=== PATIENT | female | born 1960 | race Hispanic/Latino ===

== ENCOUNTER → 2017-11-30 | Outpatient (CLI) | payer BC ==
[~2017-11-30] MED LIST: CELE200 PO; CYAN1TAB54 PO; DOXY-252 PO; DOXY100C2 PO; ESTR1TAB32 PO; OMEP40CA37 PO; TYL3 PO; VITA1CAP PO; ZOLP10TA6 PO; [UNRECOGNIZED DRUG - CODE]
== END | disposition home or self-care (01) ==
LOC: RAH 13:58
PROVIDERS: ATTEND Internal Medicine
DX: R10.9 Unspecified abdominal pain (principal); Z90.49 Acquired absence of other specified parts of digestive tract
CPT/HCPCS: 74176

== ENCOUNTER 2022-07-10 10:11 | Emergency (ER) | payer BC ==
[~2022-07-10] VITALS: Ht 160 cm; Wt 77.1 kg
[~2022-07-10 10:11] MED LIST changes: -DOXY100C2 PO; +DOXY100C5 PO; +OMEP40CA21 PO; -OMEP40CA37 PO
[2022-07-10 10:31] LABS: MEAN CORPUSCULAR HEMOGLOBIN 29.8 pg (27.0-33.0); MEAN CORPUSCULAR HGB CONC 32.8 g/dL (32.0-36.0); MEAN CORPUSCULAR VOLUME 90.7 fL (79-99); PLATELET COUNT (AUTO) 253 K/uL (130-400); WHITE BLOOD COUNT (AUTO) 10.4 K/uL (4.8-10.8)
[2022-07-10 10:48] LABS: APPEARANCE,URINE CLOUDY (CLEAR); BILIRUBIN,URINE NEGATIVE (NEGATIVE); COLOR,URINE YELLOW (YELLOW); GLUCOSE, URINE (UA) NEGATIVE (NEGATIVE); KETONES,URINE 5 mg/dL (NEGATIVE); LEUKOCYTE ESTERASE ,URINE TRACE (NEGATIVE); NITRATE,URINE NEGATIVE (NEGATIVE); OCCULT BLOOD,URINE SMALL (NEGATIVE); PROTEIN,URINE 100 mg/dL (NEGATIVE)
[2022-07-10 10:48] LABS: CREATININE 1.1 mg/dL (0.5-1.5); TOTAL PROTEIN, SERUM 8.1 g/dL (6.0-8.3)
[2022-07-10 10:50] LABS: POTASSIUM 2.9 mmol/L (3.5-5.1)
[2022-07-10] MEDS ORDERED: ACETAMINOPHEN 500 MG TABLET PO ONE (11:00)
[2022-07-10 11:07] LABS: RBC,URINE 0-1 /HPF (0-1)
[2022-07-10 11:08] LABS: BACTERIA,URINE Many /HPF (None Seen); HYALINE CASTS, URINE 0-1 /LPF (0-1 /LPF); MUCUS,URINE Few LPF (None Seen); SQUAMOUS EPITHELIAL CELL,UR Moderate /HPF (0-2)
[2022-07-10] MEDS ORDERED: LACTATED RINGERS 1000ML IV SCH (11:30)
[2022-07-10] MEDS ORDERED: POTASSIUM CHLORIDE 20MEQ/10ML 10 MEQ in 0.9%NACL 50ML 50 ML IV SCH (11:30)
[2022-07-10] MEDS ORDERED: MORPHINE 2 MG SYG IVP ONE (11:30)
[2022-07-10] MEDS ORDERED: POTASSIUM CHLORIDE 10MEQ/100ML 100 ML IV SCH (11:30)
[2022-07-10] MEDS ORDERED: ONDANSETRON 4MG INJ IVP ONE (11:30)
[2022-07-10] MEDS ORDERED: KETOROLAC 15MG/ML VIAL (15MG/ML) IV ONE ×2 (11:30→15:30)
[2022-07-10] MEDS ORDERED: CEFTRIAXONE 1G VIAL IVP ONE (12:30)
[2022-07-10] MEDS ORDERED: DOXYCYCLINE HYCLATE 100 MG TABLET PO SCH (12:30)
[2022-07-10 12:59] LABS: EOSINOPHILS % (MANUAL) 1 % (1-6); LYMPHOCYTES % (MANUAL) 11 % (22-44); MAN.DIFF COMMENT-IMPRESSION MANUAL DIFFERENTIAL; MONOCYTES % (MANUAL) 5 % (2-9); PLATELET MORPHOLOGY COMMENT ADEQUATE; SEGMENTED NEUTROPHILS % 83 % (40-70)
[2022-07-10 13:03] LABS: APPEARANCE,URINE CLEAR (CLEAR); BILIRUBIN,URINE NEGATIVE (NEGATIVE); COLOR,URINE YELLOW (YELLOW); GLUCOSE, URINE (UA) NEGATIVE (NEGATIVE); KETONES,URINE NEGATIVE (NEGATIVE); LEUKOCYTE ESTERASE ,URINE TRACE (NEGATIVE); NITRATE,URINE NEGATIVE (NEGATIVE); OCCULT BLOOD,URINE TRACE-INTACT (NEGATIVE); PH,URINE 6.5 (5.0-8.0); PROTEIN,URINE NEGATIVE (NEGATIVE)
[2022-07-10] MEDS ORDERED: IOHEXOL 350 MG/ML 100ML INFUS..BTL IV ONE (13:09)
[2022-07-10 13:26] LABS: BACTERIA,URINE Few /HPF (None Seen); RBC,URINE 0-1 /HPF (0-1); WBC,URINE 0-1 /HPF (0-1)
[2022-07-10] MEDS ORDERED: CEFD300C3 PO (15:06)
[2022-07-10] MEDS ORDERED: FIORIT PO (15:06)
[2022-07-10 15:09] VITALS: BP 153/87
[2022-07-12] MEDS ORDERED: HYDR-4381 PO (08:00)
[2022-07-13] MEDS ORDERED: AMLO5TAB4 PO (07:13)
== END 2022-07-10 15:27 | disposition home or self-care (01) ==
LOC: EDH 10:11
DX: N39.0 Urinary tract infection, site not specified (principal); R11.2 Nausea with vomiting, unspecified; Z20.822 Contact with and (suspected) exposure to COVID-19; M19.90 Unspecified osteoarthritis, unspecified site; M79.7 Fibromyalgia; Z79.1 Long term (current) use of non-steroidal anti-inflammatories (NSAID); Z79.899 Other long term (current) drug therapy; Z90.710 Acquired absence of both cervix and uterus
CPT/HCPCS: 99285; 70450; 96374; 96375; 71045; 87635; 96361; 83735; 80053; 85025; 87040 ×2; 87077; 87088; 87186; 87880; 87804 ×2; 81001 ×2; 36415; 74177; 96376; 84145; C9803; J7120; J0696; J2405; J1885 ×2; Q9967

== ENCOUNTER 2025-01-10 21:00 | Emergency (ER) | payer BC ==
[~2025-01-10] VITALS: Ht 157.5 cm; Wt 78.5 kg
[~2025-01-10 21:00] MED LIST changes: +AMLO5TAB4 PO; -CYAN1TAB54 PO; -DOXY-252 PO; -DOXY100C5 PO; +HYDR-4381 PO; -TYL3 PO; -VITA1CAP PO; -ZOLP10TA6 PO; -[UNRECOGNIZED DRUG - CODE]
[2025-01-10 21:35] LABS: BASOPHILS # (AUTO) 0.06 K/uL (0.00-0.20); BASOPHILS % (AUTO) 0.7 % (0.0-5.0); EOSINOPHILS # (AUTO) 0.25 K/uL (0.00-0.70); HEMATOCRIT 39.9 % (36-48); IMMATURE GRANULOCYTE ABSOLUTE 0.02 K/uL (0-1); LYMPHOCYTES # (AUTO) 2.3 K/uL (1.0-4.8); MEAN CORPUSCULAR HEMOGLOBIN 29.8 pg (27.0-33.0); MEAN CORPUSCULAR HGB CONC 31.8 g/dL (32.0-36.0); MEAN CORPUSCULAR VOLUME 93.7 fL (79-99); MONOCYTES # (AUTO) 0.5 K/uL (0.1-1.0); MONOCYTES % (AUTO) 6.5 % (3.0-13.0); NEUTROPHILS # (AUTO) 5.1 K/uL (1.8-7.7); NEUTROPHILS % (AUTO) 61.6 % (40.0-77.0); PLATELET COUNT (AUTO) 291 K/uL (130-400); RED BLOOD CELL COUNT(AUTO) 4.26 MIL/uL (4.00-5.50); RED CELL DISTRIBUTION WIDTH 13.3 % (11.0-15.5); WHITE BLOOD COUNT (AUTO) 8.3 K/uL (4.8-10.8)
[2025-01-10 21:45] LABS: CREATININE 0.8 mg/dL (0.5-1.0); POTASSIUM 3.6 mmol/L (3.5-5.1)
--- NOTE | 2025-01-10 21:53 | ERN ---
ED Note History of Present Illness Stated Complaint: CHILLS, NAUSEA, PAIN Chief Complaint: Tooth Ache/Pain Time Seen by MD: 21:08 Time Seen by Midlevel: 21:08 Dictation: 64-year-old female with a history of hypertension and fibromyalgia coming in complaining of chills and nausea and decreased appetite. Patient states she has a right molar tooth infection was prescribe antibiotics today and just took one pill today. However she has a history of sepsis in because she was having chills she has has a come and be evaluated. Allergies: Coded Allergies: No Known Allergies (Unverified Allergy, Unknown, 01/02/15) Home Meds Active Scripts Amlodipine Besylate (Norvasc 5Mg Tab) 5 Mg Tablet, 10 MG PO DAILY for 30 Days, #30 TAB Prov:[employer] 07/13/22 Reported Medications Hydrocodone/Acetaminophen (Hydrocodone-Acetamin 10-300 mg) 1 Each Tablet, 1 EACH PO Q4HPRN, TAB 07/12/22 Estrogen,Cassia/Me-Testosterone (Eemt Ds 1.25-2.5 mg Tablet) 1 Each Tablet, 1 EACH PO DAILY, TAB 01/04/15 Omeprazole (Omeprazole) 40 Mg Capsule.dr, 40 MG PO DAILY, CAP 01/04/15 Celecoxib (Celebrex 200Mg Cap) 200 Mg Cap, 1 MG PO DAILY, CAP 01/04/15 Past Medical History Past Medical History: Fibromyalgia, Hypertension Surgical History: Hysterectomy Surgical History Other: RT KNEE Social History: Negative, Lives with family History: Not Applicable Review of System Dictation NEGATIVE EXCEPT PER HPI Constitutional: Negative for fever,chills, and weight loss Eyes: Negative for injury, pain,redness, and discharge ENT: Mouth pain Cardiovascular: denies chest pain, palpitations, and edema Respiratory: Negative for shortness of breath, cough, and wheezing, Abdomen/GI: Negative for abdominal pain, nausea, vomiting, diarrhea, and co nstipation Back: Negative for injury and pain : Negative for injury, bleeding and discharge MS/Extremity: Negative for injury and deformity Skin: Negative for rash, and discoloration Neuro: Negative for headache, weakness, numbness, tingling, and seizure Psych: Negative for suicide ideation, homicidal ideation, and hallucinations Initial Vital Sign VS Vital Signs Date Time Temp Pulse Resp B/P (MAP) Pulse Ox O2 Delivery O2 Flow Rate FiO2 01/10/25 21:11 98.4 105 20 200/107 96 Room Air 01/10/25 22:04 0 21 Physical Exam Dictation General: awake, alert, NAD Head/Face: Normocephalic, atraumatic Eyes: PERRL, EOMI, vision at baseline ENT: oral cavity clear, TMs clear, no signs of infection Neck: Trachea midline, supple, no nuchal rigidity Cardiovascular: RRR, normal S1/S2, No MRGs, no JVD Respiratory: CTAB, no respiratory distress, No rales or wheezes Abdomen: Soft , no tender Skin: Warm, dry, normal turgor, no rash MS/Extremity: Pulses equal, no cyanosis, neurovascular intact, FROM Neuro: COAx4, GCS 15, strength 5/5, CN 2-12 intact, normal cerebellar exam, normal gait, Psych: Normal behavior, mood, and affect normal Results (Laboratory/Radiology) Laboratory/Radiology Laboratory Tests Test 01/10/25 21:26 01/10/25 22:10 White Blood Count 8.3 K/uL (4.8-10.8) Red Blood Count 4.26 MIL/uL (4.00-5.50) Hemoglobin 12.7 g/dL (12.0-16.0) Hematocrit 39.9 % (36-48) Mean Corpuscular Volume 93.7 fL (79-99) Mean Corpuscular Hemoglobin 29.8 pg (27.0-33.0) Mean Corpuscular Hemoglobin Concent 31.8 g/dL (32.0-36.0) L Red Cell Distribution Width 13.3 % (11.0-15.5) Platelet Count 291 K/uL (130-400) Mean Platelet Volume 8.8 fL (7.5-10.5) Immature Granulocyte % (Auto) 0.2 % (0-1) Neutrophils (%) (Auto) 61.6 % (40.0-77.0) Lymphocytes (%) (Auto) 28.0 % (21.0-51.0) Monocytes (%) (Auto) 6.5 % (3.0-13.0) Eosinophils (%) (Auto) 3.0 % (0.0-8.0) Basophils (%) (Auto) 0.7 % (0.0-5.0) Neutrophils # (Auto) 5.1 K/uL (1.8-7.7) Lymphocytes # (Auto) 2.3 K/uL (1.0-4.8) Monocytes # (Auto) 0.5 K/uL (0.1-1.0) Eosinophils # (Auto) 0.25 K/uL (0.00-0.70) Basophils # (Auto) 0.06 K/uL (0.00-0.20) Absolute Immature Granulocyte (auto 0.02 K/uL (0-1) Nucleated Red Blood Cells 0.0 % (0.0-0.19) Sodium Level 139 mmol/L (136-145) Potassium Level 3.6 mmol/L (3.5-5.1) Chloride Level 101 mmol/L (101-111) Carbon Dioxide Level 32 mmol/L (21-32) Blood Urea Nitrogen 12 mg/dL (7-18) Creatinine 0.8 mg/dL (0.5-1.0) Glomerular Filtration Rate Calc 82 mL/min (>90) Random Glucose 127 mg/dL (70-105) H Lactic Acid Level 1.3 mmol/L (0.8-2.5) Total Calcium 9.4 mg/dL (8.5-10.1) Urine Color COLORLESS (YELLOW) Urine Appearance CLEAR (CLEAR) Urine pH 6.0 (5.0-8.0) Urine Specific [place] 1.010 (1.001-1.031) Urine Protein NEGATIVE mg/dL (NEGATIVE) Urine Glucose (UA) NEGATIVE mg/dL (NEGATIVE) Urine Ketones NEGATIVE mg/dL (NEGATIVE) Urine Occult Blood +- (TRACE) (NEGATIVE) H Urine Nitrate NEGATIVE (NEGATIVE) Urine Bilirubin NEGATIVE mg/dL (NEGATIVE) Urine Urobilinogen 0.2 mg/dL (0.2-1.0) Urine Leukocyte Esterase NEGATIVE Curly/uL Urine RBC 0-1 /HPF (0-1) Urine WBC 2-5 /HPF (0-1) H Urine Squamous Epithelial Cells MOD /HPF (0-2) Urine Bacteria FEW /HPF (None Seen) ED Course ED Course Orders Procedure Category Date Status Time Cbc With Differential LAB 01/10/25 Complete 21:14 Basic Metabolic Panel LAB 01/10/25 Complete 21:14 Lactic Acid LAB 01/10/25 Complete 21:14 Hydralazine 20mg Inj PHA 3/5/25 Complete (Apresoline 20mg In 21:14 Urinalysis Profile LAB 01/10/25 Complete 21:14 Hydrocodone/Apap PHA 01/10/25 Complete 5/325 ([place] 5/325mg) 21:51 Ketorolac PHA 01/10/25 Complete Tromethamine 15mg/Ml 21:51 Hydralazine 20mg Inj PHA 01/10/25 Complete (Apresoline 20mg In 22:30 Amox/Clav 875/125mg PHA 01/10/25 Verified Tab (Augmentin 875-1 23:00 Current Medications Medications (Trade) Dose Ordered Sig/Leah Route PRN Reason Start Time Stop Time Status Last Admin Dose Admin Acetaminophen/ Hydrocodone Bitart (NORco 5/325MG) 1 tab ONCE STAT PO 01/10/25 21:51 01/10/25 21:55 DC 01/10/25 22:36 Hydralazine HCl (APRESOLine 20MG INJ) 10 mg ONCE ONCE IV 01/10/25 22:30 01/10/25 22:31 DC Hydralazine HCl (APRESOLine 20MG INJ) 10 mg ONCE STAT IV 01/10/25 21:14 01/10/25 21:19 DC Ketorolac Tromethamine (toRADol) 15 mg ONCE STAT IM 01/10/25 21:51 01/10/25 21:55 DC 01/10/25 22:35 Vital Signs Date Time Temp Pulse Resp B/P (MAP) Pulse Ox O2 Delivery O2 Flow Rate FiO2 01/10/25 22:04 98.4 105 20 200/107 96 Room Air* 0 21 01/10/25 21:11 98.4 105 20 200/107 96 Room Air Medical Decision Making MDM 64-year-old female with a history of hypertension and fibromyalgia coming in complaining of chills and nausea and decreased appetite. Patient states she has a right molar tooth infection was prescribe antibiotics today and just took one pill today. However she has a history of sepsis in because she was having chills she has has a come and be evaluated. Initial workup in the ER was remarkable for blood pressure elevated : BP 200/107 , heart rate 105. Workup for sepsis was started, There was no leukocytosis UA negative. Augmentin x1 We will provide pain medication p.r.n.. -Toradol -Tylenol -Motrin Patient will be discharged with antibiotic therapy and recommended to follow up with the dentist next 24 hours DX & DISP Disposition: Discharge Departure Impression: Primary Impression: Dental abscess Additional Impressions: Pain, dental, Hypertension Condition: Stable Scripts Ketorolac Tromethamine (Toradol) 10 Mg Tab 1 TAB PO Q6HPRN PRN for pain for 5 Days, #20 TAB 0 Refills Prov: ANAM AVITIA MD 01/10/25 Amoxicillin/Potassium Clav (Amox Tr-K Clv 875-125 mg Tab) 875 Mg-125 Mg Tablet 1 TAB PO BID for 10 Days, #20 TAB 0 Refills Prov: ANAM AVITIA MD 01/10/25 Additional Instructions: RETURN TO ER FOR ANY ACUTE OR WORSENING SYMPTOMS. FOLLOW-UP IN 1-2 DAYS WITH PRIMARY PROVIDER FOR RECHECK OF TODAY'S SYMPTOMS. Referrals: SELF,REFERRAL (PCP) Time of Disposition: 22:52 AUGUSTO JASSO NP Jan 10, 2025 21:53 ANAM AVITIA MD Jan 10, 2025 22:39
[2025-01-10 22:04] VITALS: BP 200/107; PULSE 105; RESP 20; TEMP 98.4; O2SAT 96
[2025-01-10 22:17] LABS: ADD UA MICROSCOPIC YES; APPEARANCE,URINE CLEAR (CLEAR); BILIRUBIN,URINE NEGATIVE (NEGATIVE); COLOR,URINE COLORLESS (YELLOW); GLUCOSE, URINE (UA) NEGATIVE (NEGATIVE); KETONES,URINE NEGATIVE (NEGATIVE); LEUKOCYTE ESTERASE ,URINE NEGATIVE Leu/uL (NEGATIVE); NITRATE,URINE NEGATIVE (NEGATIVE); PROTEIN,URINE NEGATIVE (NEGATIVE); UROBILINOGEN,URINE 0.2 mg/dL (0.2-1.0)
[2025-01-10 22:18] LABS: BACTERIA,URINE FEW /HPF (None Seen); RBC,URINE 0-1 /HPF (0-1); SQUAMOUS EPITHELIAL CELL,UR MOD /HPF (0-2)
[2025-01-10] MEDS: hydrALAZine 20MG/ML VIAL IV ONE (22:33)
[2025-01-10] MEDS: hydrALAZine 20MG/ML VIAL IV STA (22:33)
[2025-01-10] MEDS: ketOROlac 15MG/ML VIAL (15MG/ML) IM STA (22:35)
[2025-01-10] MEDS: HYDROcodone/APAP 5/325 1 TAB TABLET PO STA (22:36)
[2025-01-10] MEDS ORDERED: AMOX1TAB16 PO (22:52)
[2025-01-10] MEDS ORDERED: KETO10 PO (22:52)
[2025-01-10] MEDS: AMOX/CLAV 875/125MG TAB PO ONE (22:57)
== END 2025-01-10 23:02 | disposition home or self-care (01) ==
LOC: EDH 21:00
DX: K04.7 Periapical abscess without sinus (principal); K08.89 Other specified disorders of teeth and supporting structures; I10 Essential (primary) hypertension; M79.7 Fibromyalgia; Z79.1 Long term (current) use of non-steroidal anti-inflammatories (NSAID); Z79.890 Hormone replacement therapy; Z79.899 Other long term (current) drug therapy; Z90.710 Acquired absence of both cervix and uterus
CPT/HCPCS: 99284; 80048; 85025; 83605; 81001; 36415; 96372; J1885